=== PATIENT | male | born 1955 | race Two or more races ===

== ENCOUNTER 2024-08-27 19:13 | Emergency (ER) | payer MEDICARE, MEDICAID ==
[~2024-08-27 19:13] MED LIST: ATENPOW10; COZAAR
== END 2024-08-27 19:18 | disposition left against medical advice (07) ==
LOC: ER 19:13
DX: M79.89 Other specified soft tissue disorders (principal); Z53.21 Procedure and treatment not carried out due to patient leaving prior to being seen by health care provider

== ENCOUNTER 2024-08-27 19:49 | Emergency (ER) | payer MEDICARE, MEDICAID ==
[~2024-08-27] VITALS: Ht 175.3 cm; Wt 120.5 kg
--- NOTE | 2024-08-27 19:58 | ED.PDOC ---
Back pain HPI Time Seen by MD: 19:57 Reviewed Notes: Nurses Notes, Medications, Allergies Allergies: Coded Allergies: Iodine (Verified Allergy, 02/01/10) Home Meds Reported Medications [Cozaar] No Conflict Check 02/01/10 Atenolol (Atenolol) Pow 02/01/10 Information Source: Patient Physical Exam General Appearance: No Apparent Distress, Normal HEENT: Normal ENT Inspection, Pharynx Normal, TMs Normal Neck: Full Range of Motion, Non-Tender, Normal, Normal Inspection Respiratory: Chest Non-Tender, Lungs Clear, No Accessory Muscle Use, No Respiratory Distress, Normal Breath Sounds Cardiovascular: No Edema, No JVD, No Murmur, No Gallop, Normal Peripheral Pulses, Regular Rate/Rhythm Breast Exam: Deferred Gastrointestinal: No Organomegaly, Non Tender, No Pulsatile Mass, Normal Bowel Sounds, Soft Genitalia: Deferred Pelvic: Deferred Rectal: Deferred Extremities: No calf tenderness, Normal capillary refill, Normal inspection, Normal range of motion, Non-tender, No pedal edema Musculoskeletal : Apperance: Normal Neurologic: Alert, bladder blower II-XII nml as Tested, No Motor Deficits, Normal Affect, Normal Mood, No Sensory Deficits Cerebellar Function: Normal Reflexes: Normal Skin: Dry, Normal Color, Warm Lymphatic: No Adenopathy Was a procedure done? Was a procedure done?: No Back Pain Differential Dx Differential Diagnosis: Fracture, Musculoskeletal Pain X-Ray, Labs, Meds, VS Vital Signs Date Time Temp Pulse Resp B/P (MAP) Pulse Ox O2 Delivery O2 Flow Rate FiO2 08/27/24 20:14 98.2 66 18 144/87 (106) 94 98.2 Time of 1ST Reevaluation: 19:58 Reevaluation 1ST: Unchanged Patient Education/Counseling: Diagnosis, Treatment, Prognosis, Need For Follow Up Family Education/Counseling: No Family Present Departure 1 Departure Disposition: 01 HOME / SELF CARE / HOMELESS Condition: Stable Discharged With: Self Critical Care Note Critical Care Time?: No Stability Stability form required: ROGELIO Parks August 27, 2024 19:58
[2024-08-27 20:14] VITALS: BP 144/87; PULSE 66; RESP 18; TEMP 98.2; O2SAT 94
== END 2024-08-27 21:25 | disposition left against medical advice (07) ==
LOC: ER 19:49
DX: M79.642 Pain in left hand (principal); M79.641 Pain in right hand; M25.512 Pain in left shoulder; M54.2 Cervicalgia; Z53.21 Procedure and treatment not carried out due to patient leaving prior to being seen by health care provider